=== PATIENT | female | born 1985 | race Two or more races ===

== ENCOUNTER 2021-05-16 16:34 | Emergency (ER) | payer SELFPAY ==
[~2021-05-16] VITALS: Ht 165.1 cm; Wt 104.3 kg
[2021-05-16 16:36] VITALS: BP 128/72
[2021-05-16 17:40] LABS: Basophils # (auto) 0.1 10 ^3/uL (0-0.2); Eosinophils # (auto) 0.3 10 ^3/uL (0-0.8); Eosinophils % (auto) 2.6 % (0.0-7.0); Hemoglobin 12.4 g/dL (12.2-16.2); Mean Corpuscular Hemoglobin 25.3 pg (28.0-32.0); Mean Corpuscular Hgb Conc. 32.8 g/dL (32.0-36.0); Monocytes # (auto) 0.6 10 ^3/uL (0-1.3); Neutrophils # (auto) 7.1 10 ^3/uL (1.6-8.6)
[2021-05-16 17:42] LABS: Basophils % (auto) 0.7 % (0.0-2.0); Hematocrit 37.9 % (36.0-46.0); Lymphocytes % (auto) 19.8 % (10.0-50.0); Mean Corpuscular Volume 77.3 fL (80.0-100.0); Neutrophils % (auto) 70.9 % (37.0-80.0); Red Cell Distribution Width 15.9 % (11.8-14.3)
[2021-05-16 18:03] LABS: Albumin 3.6 g/dL (3.4-5.0); Anion Gap 6 (5-15); BUN/Creatinine Ratio 13.3; Blood Urea Nitrogen 10 mg/dL (7-18); Calcium 8.6 mg/dL (8.5-10.1); Carbon Dioxide 26 mmol/L (21-32); Chloride 108 mmol/L (98-107); GFR African American 111 mL/min; GFR Non-African American 92 mL/min; Glucose 114 mg/dL (74-106); Potassium 3.6 mmol/L (3.5-5.1); Sodium 140 mmol/L (136-145)
[2021-05-16 18:08] LABS: Alanine Aminotransferase 29 U/L (13-56); Alkaline Phosphatase 83 U/L (45-117); Aspartate Aminotransferase 15 U/L (15-37); Bilirubin, Total 0.3 mg/dL (0.2-1.0); Total Protein 7.7 g/dL (6.4-8.2)
== END 2021-05-16 23:08 | disposition home or self-care (01) ==
LOC: ER 16:34
DX: N93.8 Other specified abnormal uterine and vaginal bleeding (principal); R42 Dizziness and giddiness; Z88.6 Allergy status to analgesic agent; R53.1 Weakness
CPT/HCPCS: 36415; 76830; 76856; 80053; 83605; 83880; 84484; 84702; 85025; 87040

== ENCOUNTER 2022-01-29 03:04 | Emergency (ER) | payer OTHER ==
[~2022-01-29] VITALS: Ht 165.1 cm; Wt 111.1 kg
[2022-01-29 06:52] LABS: Urine Bacteria MOD /hpf (None Seen); Urine Blood Negative /uL (Negative); Urine Mucus FEW (None Seen); Urine Specific Gravity 1.022 (1.001-1.035); Urine WBC 96 /hpf (0 - 5)
[2022-01-29] MEDS ORDERED: SODIUM CHLORIDE 0.9% 1,000 ML IV ONE (08:30)
[2022-01-29] MEDS ORDERED: cefTRIAXone 1GM/50ML D5W 50 ML IV ONE (08:30)
[2022-01-29] MEDS ORDERED: IBUPROFEN 800 MG TAB PO ONE (08:30)
[2022-01-29] MEDS ORDERED: ONDANSETRON ODT 4 MG TAB PO ONE (08:30)
[2022-01-29] MEDS ORDERED: IBUP800T27 PO (08:39)
[2022-01-29] MEDS ORDERED: SULF800T7 PO (08:39)
[2022-01-29 11:14] VITALS: BP 106/64
== END 2022-01-29 11:48 | disposition home or self-care (01) ==
LOC: EDSEX 03:04 → EDUNIT# 03:04 → EDBD 03:04 → ER 03:04
DX: N39.0 Urinary tract infection, site not specified (principal); Z90.710 Acquired absence of both cervix and uterus; Z79.1 Long term (current) use of non-steroidal anti-inflammatories (NSAID); Z79.899 Other long term (current) drug therapy; Z88.8 Allergy status to other drugs, medicaments and biological substances
CPT/HCPCS: 81001; 81025; 96365; 96366; 99284; J0696; J7030; Q0162